=== PATIENT | male | born 1955 | race Caucasian/White ===

== ENCOUNTER 2017-01-15 06:09 | Day surgery (SDC) | payer OTHER ==
[~2017-01-15] VITALS: Ht 160 cm; Wt 91.8 kg
[2017-01-15 06:57] VITALS: Ht 160 cm; Wt 91.8 kg
[2017-01-15] MEDS ORDERED: METFORMIN DAILY (07:10)
[2017-01-15] MEDS ORDERED: LOSARTAN DAILY (07:10)
[2017-01-15] MEDS ORDERED: GLIPIZIDE DAILY (07:10)
[2017-01-15] MEDS ORDERED: ATORVASTATIN DAILY (07:10)
[2017-01-15] MEDS ORDERED: [UNRECOGNIZED DRUG - OTHER] (07:10)
[2017-01-15] MEDS ORDERED: LIDOCAINE 2% (SDV) 5 ML INJ ONE (07:34)
[2017-01-15] MEDS ORDERED: PROPOFOL 60 ML ONE (07:34)
[2017-01-15 07:52] VITALS: BP 173/81; PULSE 109; RESP 20
[2017-01-15 09:03] VITALS: BP 140/81; PULSE 92; RESP 12
--- NOTE | 2017-01-15 11:50 | GILP ---
DATE OF PROCEDURE: NAME OF PROCEDURES: 1. Esophagogastroduodenoscopy and biopsy. 2. Colonoscopy. SURGEON: Claudia Helms MD PREOPERATIVE DIAGNOSES: 1. Abdominal pain. 2. Positive occult blood in stool. POSTOPERATIVE DIAGNOSES: 1. Gastroesophageal reflux disease. 2. Gastritis with erosions. 3. Gastric mucosal biopsies were taken for Helicobacter pylori test. 4. Colonoscopy all the way to the cecum. 5. Internal hemorrhoids. 6. No colon neoplasm was identified. INDICATION FOR THE PROCEDURE: Mr. Stephen Iraheta is a 61-year-old male patient who had upper abdomin al pain, not responding to therapy. He was noted to have positive occult blood in stool. The patient was scheduled for endoscopy and colonoscopy. The procedures and possible complications were well explained to the patient, he understood and consented to the procedure. DESCRIPTION OF PROCEDURE: Under the influence of anesthesia, the gastroscope was carefully introduc ed into the esophagus and under direct vision, it was advanced to the stomach and through the pyloru s into the duodenal bulb and descending duodenum. FINDINGS: ESOPHAGUS: The patient had gastroesophageal reflux disease. STOMACH: He had gastritis. Gastric mucosal biopsies were taken for H. pylori test. DUODENUM: Normal. The colonoscope was carefully introduced in the rectum and under direct vision, it was advanced all the way to the cecum. FINDINGS: The patient had internal hemorrhoids. No colitis or neoplasm was identified. He tolerated the procedures very well and there was no complication from the procedures. At the end of the procedures, he was awake with stable vital signs and he was discharged home to the care of h is family. IMPRESSION: 1. Gastroesophageal reflux disease. 2. Gastritis. 3. Gastric mucosal biopsies were taken for Helicobacter pylori test. 4. Colonoscopy all the way to the cecum. 5. Internal hemorrhoids. 6. No colon neoplasm was identified. PLAN: 1. Omeprazole 40 mg p.o. q.a.m. 2. Await H. pylori test report. 3. Next screening colonoscopy in 10 years. Dictated By: CLAUDIA RAMEY/JANET Conf#: [id number] DID#: [id number]
== END 2017-01-15 12:28 | disposition home or self-care (01) ==
LOC: GIL 06:09
PROVIDERS: ATTEND Internal Medicine Gastroenterology
DX: K92.1 Melena (principal); K21.9 Gastro-esophageal reflux disease without esophagitis; K29.60 Other gastritis without bleeding; B96.81 Helicobacter pylori [H. pylori] as the cause of diseases classified elsewhere; K64.8 Other hemorrhoids; I10 Essential (primary) hypertension; E11.9 Type 2 diabetes mellitus without complications; E78.5 Hyperlipidemia, unspecified
CPT/HCPCS: 43239; 45378; 82962; 87081; Z7610